=== PATIENT | female | born 1975 | race Caucasian/White ===

== ENCOUNTER 2023-09-08 07:32 | Emergency (ER) | payer MEDICAID ==
[~2023-09-08] VITALS: Ht 167.6 cm; Wt 68.0 kg
[2023-09-08 07:42] VITALS: BP 103/77; PULSE 98; RESP 18; TEMP 97.8; O2SAT 100
[2023-09-08] MEDS: KETOROLAC 30 MG/ML VIAL IM ONE (08:46)
[2023-09-08] MEDS ORDERED: ACET-8905 PO (09:12)
[2023-09-08] MEDS ORDERED: IBUP-1842 PO (09:12)
[2023-09-08 09:57] LABS: FLU A ANTIGEN negative (NEGATIVE); FLU B ANTIGEN negative (NEGATIVE)
== END 2023-09-08 10:25 | disposition home or self-care (01) ==
LOC: MED 07:32
DX: K11.20 Sialoadenitis, unspecified (principal); Z20.822 Contact with and (suspected) exposure to COVID-19; R51.9 Headache, unspecified; M79.10 Myalgia, unspecified site; H92.03 Otalgia, bilateral; E11.9 Type 2 diabetes mellitus without complications; E03.9 Hypothyroidism, unspecified; F17.210 Nicotine dependence, cigarettes, uncomplicated; Z90.710 Acquired absence of both cervix and uterus; Z79.1 Long term (current) use of non-steroidal anti-inflammatories (NSAID); Z88.8 Allergy status to other drugs, medicaments and biological substances
CPT/HCPCS: 87426; 87804; 96372; 99283; J1885